=== PATIENT | female | born 1955 | race Caucasian/White ===

== ENCOUNTER 2017-11-24 06:00 | Emergency (ER) | payer SELFPAY ==
[~2017-11-24 06:00] MED LIST: LANTUSP SQ; NOVOLOGP2 SQ
[2017-11-24 06:09] VITALS: BP 146/71; PULSE 85; RESP 18; O2SAT 99
[2017-11-24] MEDS ORDERED: SODIUM CHLORIDE 0.9% FLUSH 10 ML FLUSH IVF PRN (06:15)
[2017-11-24 06:16] VITALS: BP_SYST 140; BP_SYST 146; BP_DIAS 1; BP_DIAS 71; BP_DIAS 74
--- NOTE | 2017-11-24 06:18 | PD ---
HPI Chief Complaint: Chest Pain Time Seen by Provider: 06:11 Travel History International Travel<30 days: No Contact w/Intl Traveler<30days: No Traveled to known affect area: No History of Present Illness HPI 62-year-old female presents to the emergency department by private transportation for complaint of severe right-sided anterior chest pain 1 week. Patient had associated nausea and vomiting. Patient states she has had no hematemesis or coffee-ground emesis. Patient has vomited stomach contents each morning. Patient has history of diabetes blood sugars have been in the 200s reportedly. Patient states that since May 2017 she has been diagnosed with colon cancer had partial colectomy no radiation therapy or chemotherapy. Patient had PET scan that identified metastatic disease to the liver. Patient is currently not under the care of an oncologist. Patient is under the care of an production honing machine operator for her diabetes. Patient has not followed up with her surgeon Dr. Martinez. Patient states pain to the right anterior chest increases with attempted deep breathing. No report of hemoptysis. No report of coffee- ground emesis hematemesis melena hematochezia. Patient had approximate 20 pound weight loss recently. Patient denies personal history of hypertension dyslipidemia tobaccoism CAD or clotting disorder. Patient is unable to identify exacerbating or alleviating factors. Patient is taken no medication. Patient rates her pain 11/10 intensity. PFSH Past Medical History Narrative Medical Colon cancer diabetes partial colectomy; no tobacco use no alcohol use ; nursing notes reviewed Diabetes: Yes Past Surgical History Section: Yes Tonsillectomy: Yes Social History Alcohol Use: Yes (OCCAISIONAL) Tobacco Use: No Substance Use: No Allergies-Medications (Allergen,Severity, Reaction): Coded Allergies: No Known Allergies (Unverified Adverse Reaction, Unknown, 11/24/17) Reported Meds & Prescriptions Reported Meds & Active Scripts Active Reported Lisinopril 2.5 Mg Tab 2.5 Mg PO DAILY Humalog Inj (Insulin Human Lispro) 1,000 Unit/10 Ml Vial 1-9 Units SQ ACHS Max dose at bedtime:( )units; sugars< 70,(0)units; sugars 150-199,(1)unit; sugars 200-249,(3)units; sugars 250-299,(5)units; sugars 300-349,(7)units; sugars more than 349,(9)units. Lantus Inj (Insulin Glargine) 1,000 Unit/10 Ml Vial 20 Units SQ HS Review of Systems Except as stated in HPI: all other systems reviewed are Neg General / Constitutional: Positive: Weight Loss, No: Fever, Chills HENT: No: Congestion Cardiovascular: Positive: Chest Pain or Discomfort, No: Diaphoresis, Dyspnea on exertion Respiratory: Positive: Shortness of Breath, Pleuritic Pain, No: Hemoptysis, Stridor Gastrointestinal: No: Nausea, Vomiting, Diarrhea, Abdominal Pain, Hematemesis, Hematochezia, Loss of Appetite Genitourinary: No: Dysuria, Flank Pain Musculoskeletal: No: Myalgias, Arthralgias Skin: No Rash Neurologic: Positive: Weakness Psychiatric: Positive: Anxiety Hematologic/Lymphatic: No: Easy Bruising Physical Exam Narrative GENERAL: Well-developed thin cachectic female in no acute distress or respiratory distress however intermittently tearful SKIN: Warm and dry. HEAD: Normocephalic. EYES: No scleral icterus. No injection or drainage. NECK: Supple, trachea midline. No JVD or lymphadenopathy. CARDIOVASCULAR: Regular rate and rhythm without murmurs, gallops, or rubs. Chest wall: Nontender to direct palpation. RESPIRATORY: Breath sounds equal bilaterally. No accessory muscle use. GASTROINTESTINAL: Abdomen soft, non-tender, nondistended. MUSCULOSKELETAL: No cyanosis, or edema. BACK: Nontender without obvious deformity. No CVA tenderness. Data Data Last Documented VS Vital Signs Date Time Temp Pulse Resp B/P (MAP) Pulse Ox O2 Delivery O2 Flow Rate FiO2 11/24/17 06:35 98.1 11/24/17 06:17 Room Air 11/24/17 06:09 85 18 99 Orders Orders Electrocardiogram (11/24/17 06:05) Electrocardiogram (11/24/17 06:11) Ckmb (Isoenzyme) Profile (11/24/17 06:11) Complete Blood Count With Diff (11/24/17 06:11) Comprehensive Metabolic Panel (11/24/17 06:11) Magnesium (Mg) (11/24/17 06:11) Prothrombin Time / Inr (Pt) (11/24/17 06:11) Act Partial Throm Time (Ptt) (11/24/17 06:11) Troponin I (11/24/17 06:11) Lipase (11/24/17 06:11) Chest, Single Ap (11/24/17 06:11) Ecg Monitoring (11/24/17 06:11) Bilateral Bp Monitoring (11/24/17 06:11) Iv Access Insert/Monitor (11/24/17 06:11) Oximetry (11/24/17 06:11) Oxygen Administration (11/24/17 06:11) Sodium Chloride 0.9% Flush (Ns Flush) (11/24/17 06:15) Ct Pulmonary Angiogram (11/24/17 ) Labs Laboratory Tests Test 11/24/17 06:30 MDM Medical Decision Making Medical Screen Exam Complete: Yes Emergency Medical Condition: Yes Medical Record Reviewed: Yes Interpretation(s) EKG: Normal sinus rhythm rate 72 normal axis and intervals no acute ST elevation , injury, or ectopy noted Vital Signs Date Time Temp Pulse Resp B/P (MAP) Pulse Ox O2 Delivery O2 Flow Rate FiO2 11/24/17 06:35 98.1 11/24/17 06:17 Room Air 11/24/17 06:17 Room Air 11/24/17 06:16 140/74 (96) 146/71 (96) 11/24/17 06:09 85 18 146/71 (96) 99 Differential Diagnosis Chest pain, rib fracture, pneumothorax, PE, pneumonia, pancreatitis, hepatomegaly, malignancy Narrative Course Patient placed on vehicle monitor technician IV access obtained specimens collected and sent for resulting EKG ordered At 6:55 AM care signed over to Dr. Gray Diagnosis Primary Impression: Chest pain Yamileth Musa MD Nov 24, 2017 06:18
[2017-11-24] MEDS ORDERED: HUMALOG SQ (06:19)
[2017-11-24] MEDS ORDERED: LISI2.5T3 PO (06:19)
[2017-11-24] MEDS ORDERED: LANTUS2P SQ (06:19)
[2017-11-24 06:35] VITALS: TEMP 98.1
--- NOTE | 2017-11-24 06:39 | RADRPT ---
EXAM DATE/TIME: 11/24/2017 06:26 [facility] COMPARISON: No previous studies available for comparison. INDICATIONS : Chest pain. MEDICAL HISTORY : None. SURGICAL HISTORY : None. ENCOUNTER: Initial ACUITY: 1 week PAIN SCORE: 6/10 LOCATION: Right chest FINDINGS: A single view of the chest demonstrates no focal consolidation or effusion. Heart size normal. Minima l scoliosis. CONCLUSION: No acute disease. Norberto Ortiz MD on November 24, 2017 at 6:37 Board Certified Radiologist. This report was verified electronically.
[2017-11-24 06:41] LABS: AUTOMATED NEUTROPHIL # 3.7 TH/MM3 (1.8-7.7); BASOPHIL % 0.5 % (0.0-2.0); EOSINOPHIL % 0.3 % (0.0-4.0); HEMATOCRIT 38.1 % (35.0-46.0); HEMOGLOBIN 12.6 GM/DL (11.6-15.3); LYMPH % 12.8 % (9.0-44.0); LYMPHOCYTE # 0.6 TH/MM3 (1.0-4.8); MEAN CELL VOLUME 88.6 FL (80.0-100.0); MEAN CORPUSCULAR HEMOGLOBIN 29.3 PG (27.0-34.0); MEAN CORPUSCULAR HGB CONC 33.1 % (32.0-36.0); MEAN PLATELET VOLUME 7.9 FL (7.0-11.0); MONO % 6.7 % (0.0-8.0); MONOCYTE # 0.3 TH/MM3 (0-0.9); NEUT % 79.7 % (16.0-70.0); PLATELET COUNT 372 TH/MM3 (150-450); RED CELL DISTRIBUTION WIDTH 12.8 % (11.6-17.2); WHITE BLOOD COUNT 4.6 TH/MM3 (4.0-11.0)
[2017-11-24] MEDS ORDERED: ASPIRIN 81 MG CHEW TAB CHEW ONE (07:00)
[2017-11-24 07:02] LABS: CHLORIDE 89 MEQ/L (98-107); SODIUM (NA) 126 MEQ/L (136-145)
[2017-11-24 07:05] LABS: CALCIUM 9.4 MG/DL (8.5-10.1)
[2017-11-24 07:06] LABS: ALBUMIN 3.1 GM/DL (3.4-5.0); BLOOD UREA NITROGEN 8 MG/DL (7-18); GLUCOSE,RANDOM 168 MG/DL (74-106); MAGNESIUM 2.3 MG/DL (1.5-2.5)
[2017-11-24 07:07] LABS: INTERNATIONAL NORMALIZED RATIO 1.1 RATIO; PROTHROMBIN TIME - PATIENT 10.9 SEC (9.8-11.6)
[2017-11-24 07:09] LABS: ALT (GPT) 16 U/L (10-53); AST (GOT) 28 U/L (15-37); CREATININE 0.62 MG/DL (0.50-1.00); GLOMERULAR FILTRATION RATE 97 ML/MIN (>89)
[2017-11-24 07:10] LABS: TOTAL BILIRUBIN ADULT 0.4 MG/DL (0.2-1.0); TOTAL PROTEIN 7.7 GM/DL (6.4-8.2)
[2017-11-24 07:12] LABS: ALKALINE PHOSPHATASE 225 U/L (45-117)
[2017-11-24 07:14] LABS: TROPONIN I LESS THAN 0.02 NG/ML (0.02-0.05)
[2017-11-24] MEDS ORDERED: IOHEXOL 350 MG/ML 10 ML VIAL (for RAD DIAG) IVCONTRAST ONE (07:30)
--- NOTE | 2017-11-24 07:43 | RADRPT ---
EXAM DATE/TIME: 11/24/2017 07:21 [facility] COMPARISON: No previous studies available for comparison. INDICATIONS : Right anterior chest pain. IV CONTRAST: 65 cc Omnipaque 350 (iohexol) IV RADIATION DOSE: 5.51 CTDIvol (mGy) MEDICAL HISTORY : Carcinoma, colon. Diabetes. SURGICAL HISTORY : Colon surgery. ENCOUNTER: Initial ACUITY: 1 week PAIN SCALE: 4/10 LOCATION: Right chest TECHNIQUE: Volumetric scanning of the chest was performed using a pulmonary embolism protocol MIP images were re constructed. Using automated exposure control and adjustment of the mA and/or kV according to patien t size, radiation dose was kept as low as reasonably achievable to obtain optimal diagnostic quality images. DICOM format image data is available electronically for review and comparison. Follow-up recommendations for detected pulmonary nodules are based at a minimum on nodule size and pa tient risk factors according to Fleischner Society Guidelines. FINDINGS: PULMONARY ARTERIES: No filling defects are seen in the pulmonary arteries through the segmental level. LUNGS: There is no consolidation or pneumothorax . No concerning pulmonary nodule is visualized. PLEURAE: There is no pleural thickening or pleural effusion. MEDIASTINUM: There is good visualization of the great vessels of the middle mediastinum. No evidence of mediastin al or hilar adenopathy/mass. MUSCULOSKELETAL: Within normal limits for patient age. MISCELLANEOUS: The visualized upper abdomen demonstrates multiple hypodense large hepatic masses in both lobes of th e liver. The 3 largest masses measure approximately 5.0 x 5.2 cm, 4.4 x 4.9 cm, and 4.7 x 4.3 cm. CONCLUSION: 1. No CT evidence of pulmonary artery embolism as questioned. 2. Multiple large hypodense bilobar hepatic masses consistent with metastatic disease in this patient with history of colon carcinoma. Orlin Epperson MD on November 24, 2017 at 7:35 Board Certified Radiologist. This report was verified electronically.
--- NOTE | 2017-11-24 08:21 | EKG ---
Date Performed: 11/24/2017 Time Performed: 06:18:08 PTAGE: 62 years EKG: Sinus rhythm NORMAL ECG NO PREVIOUS TRACING DOCTOR: Javier Nelson Interpretating Date/Time 11/24/2017 08:19:56
--- NOTE | 2017-11-24 09:32 | PD ---
Physical Exam Date Seen by Provider: Nov 24, 2017 Time Seen by Provider: 09:30 Narrative his 62-year-old female who presented with right lower chest pain she has been going on for several months. The pain is getting increasingly severe and is been quite bad the past week. She has had sporadic vomiting. She had a partial colon resection in June 2017 for colon cancer. In July she had a PET scan which showed that she had metastatic disease in the liver. She says that she had been scheduled to see an oncologist but the appointment was canceled because she did not have insurance. She has not had any treatment. She has been losing weight. 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 Dr. Musa had seen the patient and ordered EKG and enzymes which are negative. A CTA was also ordered. On the CTA there are no pulmonary emboli. They do see metastatic lesions in her liver which are larger now than they were on the PET scan. I believe the pain she describes is from her liver metastasis. I have asked her case assembler to see if she can expedite any treatment for this patient. She has spoken to the patient navigator in the oncology department and Jacki Rico. Data Data Last Documented VS Vital Signs Date Time Temp Pulse Resp B/P (MAP) Pulse Ox O2 Delivery O2 Flow Rate FiO2 11/24/17 07:09 78 16 99 Room Air 11/24/17 06:35 98.1 Orders Orders Electrocardiogram (11/24/17 06:11) Ckmb (Isoenzyme) Profile (11/24/17 06:11) Complete Blood Count With Diff (11/24/17 06:11) Comprehensive Metabolic Panel (11/24/17 06:11) Magnesium (Mg) (11/24/17 06:11) Prothrombin Time / Inr (Pt) (11/24/17 06:11) Act Partial Throm Time (Ptt) (11/24/17 06:11) Troponin I (11/24/17 06:11) Lipase (11/24/17 06:11) Chest, Single Ap (11/24/17 06:11) Ecg Monitoring (11/24/17 06:11) Bilateral Bp Monitoring (11/24/17 06:11) Iv Access Insert/Monitor (11/24/17 06:11) Oximetry (11/24/17 06:11) Oxygen Administration (11/24/17 06:11) Sodium Chloride 0.9% Flush (Ns Flush) (11/24/17 06:15) Ct Pulmonary Angiogram (11/24/17 ) Aspirin Chew (Aspirin Chew) (11/24/17 07:00) Iohexol 350 Inj (Omnipaque 350 Inj) (11/24/17 07:30) Labs Laboratory Tests Test 11/24/17 06:30 White Blood Count 4.6 TH/MM3 Red Blood Count 4.30 MIL/MM3 Hemoglobin 12.6 GM/DL Hematocrit 38.1 % Mean Corpuscular Volume 88.6 FL Mean Corpuscular Hemoglobin 29.3 PG Mean Corpuscular Hemoglobin Concent 33.1 % Red Cell Distribution Width 12.8 % Platelet Count 372 TH/MM3 Mean Platelet Volume 7.9 FL Neutrophils (%) (Auto) 79.7 % Lymphocytes (%) (Auto) 12.8 % Monocytes (%) (Auto) 6.7 % Eosinophils (%) (Auto) 0.3 % Basophils (%) (Auto) 0.5 % Neutrophils # (Auto) 3.7 TH/MM3 Lymphocytes # (Auto) 0.6 TH/MM3 Monocytes # (Auto) 0.3 TH/MM3 Eosinophils # (Auto) 0.0 TH/MM3 Basophils # (Auto) 0.0 TH/MM3 CBC Comment DIFF FINAL Differential Comment Prothrombin Time 10.9 SEC Prothromb Time International Ratio 1.1 RATIO Activated Partial Thromboplast Time 30.1 SEC Blood Urea Nitrogen 8 MG/DL Creatinine 0.62 MG/DL Random Glucose 168 MG/DL Total Protein 7.7 GM/DL Albumin 3.1 GM/DL Calcium Level 9.4 MG/DL Magnesium Level 2.3 MG/DL Alkaline Phosphatase 225 U/L Aspartate Amino Transf (AST/SGOT) 28 U/L Alanine Aminotransferase (ALT/SGPT) 16 U/L Total Bilirubin 0.4 MG/DL Sodium Level 126 MEQ/L Potassium Level 3.7 MEQ/L Chloride Level 89 MEQ/L Carbon Dioxide Level 32.0 MEQ/L Anion Gap 5 MEQ/L Estimat Glomerular Filtration Rate 97 ML/MIN Total Creatine Kinase 85 U/L Troponin I LESS THAN 0.02 NG/ML Lipase 86 U/L [facility] Medical Record Reviewed: No Supervised Visit with ELISE: No Differential Diagnosis Differential includes pulmonary embolus, metastatic colon cancer Narrative Course CTA shows metastatic colon cancer Diagnosis Primary Impression: Chest pain Additional Impression: Metastatic colon cancer in female Scripts Ondansetron Odt (Zofran Odt) 4 Mg Tab 4 MG SL Q6HR Y for Nausea/Vomiting, #10 TAB 0 Refills Prov: Sandro Bateman MD 11/24/17 Hydrocodone-Acetaminophen ([place]) 7.5-325 mg Tab 1 TAB PO Q4H Y for PAIN for 12 Days, #72 TAB 0 Refills Prov: Sandro Bateman MD 11/24/17 Disposition: 01 DISCHARGE HOME Condition: Stable Sandro Bateman MD Nov 24, 2017 09:32
[2017-11-24] MEDS ORDERED: ZOFR4TAB3 SL (09:36)
[2017-11-24] MEDS ORDERED: HYDR-3288 PO (09:36)
[2017-11-24 09:58] VITALS: BP 140/77
== END 2017-11-24 10:00 | disposition home or self-care (01) ==
LOC: PHED 06:00
DX: C18.9 Malignant neoplasm of colon, unspecified (principal); C78.7 Secondary malignant neoplasm of liver and intrahepatic bile duct; R07.9 Chest pain, unspecified; R11.2 Nausea with vomiting, unspecified; E11.9 Type 2 diabetes mellitus without complications; Z79.4 Long term (current) use of insulin
CPT/HCPCS: 71045; 71275; 80053; 82550; 83690; 83735; 84484; 85025; 85610; 85730; 93005; 99285; Q9967